=== PATIENT | female | born 1995 | race African-American/Black ===

== ENCOUNTER 2018-03-10 22:45 | Emergency (ER) | payer BC, MEDICAID | END 2018-03-10 23:15 | disposition home or self-care (01) | LOC: NAV ERS 22:45 | DX: J06.9 Acute upper respiratory infection, unspecified (principal) | CPT/HCPCS: 99283 ==

== ENCOUNTER 2018-04-07 00:31 | Emergency (ER) | payer BC ==
[2018-04-07 01:09] LABS: Pregnancy Test - Urine (BHCG) Negative (Negative)
[2018-04-07] MEDS ORDERED: Ketorolac Tromethamine 30 MG/ML VIAL ONE (01:09)
[2018-04-07 01:10] LABS: Pregu Control Background? CLEAR/WHITE (CLR/WHITE); Pregu Control Bar Appear? YES (CONTROL BAR)
== END 2018-04-07 01:20 | disposition home or self-care (01) ==
LOC: NAV ERS 00:31
DX: S33.5XXA Sprain of ligaments of lumbar spine, initial encounter (principal); X50.9XXA Other and unspecified overexertion or strenuous movements or postures, initial encounter; Y92.69 Other specified industrial and construction area as the place of occurrence of the external cause
CPT/HCPCS: 81025; 99283; J1885

== ENCOUNTER 2018-07-22 00:55 | Emergency (ER) | payer BC ==
[2018-07-22] MEDS ORDERED: Ondansetron ODT 4 MG TAB ONE (01:37)
[2018-07-22 01:42] LABS: Bilirubin Small (Negative); Blood, Urine Negative (Negative); Clarity Clear (Clear); Glucose, Urine (Dipstick) Negative (Negative); Leukocyte Negative (Negative); Nitrite Negative (Negative); Protein, Urine (Dipstick) Negative (Neg-Trace); Urobilinogen > or = 8.0 mg/dL (0.2-1.0); pH, Urine 6.5 (5.0-9.0)
[2018-07-22 01:46] LABS: Pregnancy Test - Urine (BHCG) Negative (Negative); Pregu Control Background? CLEAR/WHITE (CLR/WHITE); Pregu Control Bar Appear? YES (CONTROL BAR); Specific Gravity 1.031 (1.002-1.036)
[2018-07-22 01:47] LABS: Specific Gravity, Urine 1.031 (1.002-1.036)
== END 2018-07-22 02:00 | disposition home or self-care (01) ==
LOC: NAV ERS 00:55
DX: R11.2 Nausea with vomiting, unspecified (principal); E66.9 Obesity, unspecified; Z79.84 Long term (current) use of oral hypoglycemic drugs
CPT/HCPCS: 81003; 81025; 99284; Q0162